=== PATIENT | male | born 1975 | race Caucasian/White ===

== ENCOUNTER 2020-04-09 10:21 | Emergency (ER) | payer OTHER ==
[~2020-04-09] VITALS: Ht 175.3 cm; Wt 88.5 kg
[~2020-04-09 10:21] MED LIST: NORCO 5-325 TA1 EACH PO
[2020-04-09] MEDS ORDERED: NORCO 5-325 TA1 EACH PO (10:50)
== END 2020-04-09 10:58 | disposition home or self-care (01) ==
LOC: ED 10:21
PROC: 2W25X4Z Dressing of Back using Bandage (ICD-10-PCS; principal; 2020-04-09)
DX: T21.05XA Burn of unspecified degree of buttock, initial encounter (principal); F17.200 Nicotine dependence, unspecified, uncomplicated; X30.XXXA Exposure to excessive natural heat, initial encounter
CPT/HCPCS: 16020; 99283-25